=== PATIENT | male | born 1940 | race Caucasian/White ===

== ENCOUNTER 2017-07-08 11:14 | Outpatient (CLI) | payer MEDICARE | END 2017-07-08 11:15 | disposition critical access hospital (66) | LOC: EMS 11:14 | PROVIDERS: ATTEND Surgery | DX: R42 Dizziness and giddiness (principal); R11.0 Nausea | CPT/HCPCS: A0425; A0427 ==

== ENCOUNTER 2017-07-08 11:57 | Emergency (ER) | payer MEDICARE ==
--- NOTE | 2017-07-08 13:09 | ED Physician Documentation ---
PD HPI HEENT - Stated complaint Stated Complaint: VERTIGO - Chief complaint Chief Complaint: General - History obtained from History obtained from: Patient - History of Present Illness Timing - onset: Yesterday Timing - details: Abrupt onset, Intermittant Location: Other (Has had abrupt feeling of significant vertigo with position changes over the last 2 days. Initial episode was yesterday morning when awakening from bed and getting up. Another episode when getting up from a nap in the afternoon. Again this morning getting out of bed and then the other significant episode was when he was looking down kneeling on the ground fixing part of his sprinkler system in the yard and then looked up. He has lessening of the symptoms when he rests and holds still. He denies any foreign blurriness or ataxia per se. He feels off balance walking due to the vertigo. He has not had any trouble speaking, visual changes, speech part problems. He denies any focal weaknesses. He did not have any injury. He denies any recent head cold or congestion. He does feel some fullness in his ears as if there is pressure in them.) Improves: Other (holding still position) Worsens: Position (movement) Associated symptoms: Other (feeling of pressure in ears; no tinnitus per se.). No: Fever, Congestion, Headache Similar symptoms before: Has not had sx before Recently seen: Not recently seen Review of Systems Constitutional: denies: Fever, Chills, Myalgias Ears: denies: Loss of hearing, Ear pain (but feeling of pressure in ears ("like a balloon")), Tinnitus/ringing Nose: denies: Rhinorrhea / runny nose, Congestion, Sinus pressure / pain Throat: denies: Dental pain / toothache, Sore throat Cardiac: denies: Chest pain / pressure, Palpitations Respiratory: denies: Dyspnea, Cough GI: reports: Nausea (with the vertigo). denies: Abdominal Pain, Vomiting, Diarrhea : denies: Dysuria, Frequency Skin: denies: Rash, Lesions Neurologic: denies: Generalized weakness, Focal weakness, Numbness, Difficulty speaking, Near syncope, Altered mental status, Headache, Head injury Immunocompromised: denies: Immunocompromised PD PAST MEDICAL HISTORY - Past Medical History Cardiovascular: Hypertension, High cholesterol - Past Surgical History Past Surgical History: Yes Ortho: Knee replacement - Present Medications Home Medications: Ambulatory Orders Medication Instructions Recorded Confirmed Hydrochlorothiazide 08/30/14 08/30/14 Lisinopril 08/30/14 08/30/14 Naproxen 08/30/14 08/30/14 Simvastatin 08/30/14 08/30/14 amLODIPine [Norvasc] 08/30/14 08/30/14 Dexamethasone [Decadron] 4 mg PO DAILY #5 tablet 07/08/17 Meclizine [Antivert] 25 mg PO Q6H PRN #30 tablet 07/08/17 - Allergies Allergies/Adverse Reactions: Allergies Allergy/AdvReac Type Severity Reaction Status Date / Time No Known Drug Allergies Allergy Verified 07/08/17 12:16 - Social History Does the pt smoke?: No Smoking Status: Never smoker Does the pt drink ETOH?: Yes Does the pt have substance abuse?: No - Family History Family history: reports: Non contributory - Immunizations Immunizations are current?: Yes - POLST Patient has POLST: No PD ED PE NORMAL - Vitals Vital signs reviewed: Yes - General General: Alert and oriented X 3, No acute distress, Well developed/nourished - HEENT HEENT: Atraumatic, PERRL, EOMI (with nystagmus to the right), Ears normal, Moist mucous membranes, Pharynx benign - Neck Neck: Supple, no meningeal sign, Thyroid normal - Cardiac Cardiac: RRR, No murmur - Respiratory Respiratory: Clear bilaterally - Abdomen Abdomen: Soft, Non tender - Male Male : Deferred - Rectal Rectal: Deferred - Derm Derm: Normal color, Warm and dry - Extremities Extremities: No deformity, No tenderness to palpate, Normal ROM s pain, No edema , No calf tenderness / cord - Neuro Neuro: Alert and oriented X 3, health safety and environment manager 2-12 intact, No motor deficit, Normal speech Eye Opening: Spontaneous Motor: Obeys Commands Verbal: Oriented GCS Score: 15 Results - Vitals Vitals: Vital Signs - 24 hr 07/08/17 07/08/17 07/08/17 12:00 13:18 14:13 Temperature 36.7 C Heart Rate 53 L 45 L 45 L Respiratory 18 18 14 Rate Blood Pressure 174/65 H 136/64 H 154/79 H O2 Saturation 98 97 97 07/08/17 14:59 Temperature Heart Rate 46 L Respiratory 14 Rate Blood Pressure 140/65 H O2 Saturation 98 Oxygen O2 Source Room air - Labs Labs: Laboratory Tests 07/08/17 07/08/17 14:00 14:00 WBC 8.0 RBC 4.32 L Hgb 13.2 L Hct 38.6 L MCV 89.3 MCH 30.6 MCHC 34.3 RDW 14.6 Plt Count 315 MPV 6.6 L Neut # 6.3 Lymph # 0.9 L [place] # 0.7 Eos # 0.1 Baso # 0.1 Absolute Nucleated RBC 0.00 Nucleated RBC % 0.0 Sodium 128 L Potassium 4.2 Chloride 96 L Carbon Dioxide 26 Anion Gap 6.0 BUN 13 Creatinine 0.7 Estimated GFR (MDRD) 109 Glucose 111 H Calcium 8.9 Magnesium 1.8 Total Bilirubin 1.4 H AST 22 ALT 19 Alkaline Phosphatase 45 Total Protein 6.7 Albumin 4.3 Globulin 2.4 Albumin/Globulin Ratio 1.8 Lipase 20 L PD MEDICAL DECISION MAKING - ED course Complexity details: re-evaluated patient (He is having bradycardia on the heart monitor that does not correlate with any symptoms. He states he felt dizzy when he walked to the bathroom and back and did have to hold on for balance. He does have a walker at home. His heart rate at that time was 50s-60s. At rest his heart rate went down to 38-40 at the lowest but only for briefly. Generally it is high 40s-50s. He does take metoprolol without any recent change of dose. He states he has a chronically low sodium and it is a little bit low here. His other electrolytes are good. He does have positional vertigo which dampens when he rests and he has obvious nystagmus to the right and no other neurologic symptoms. Therefore seems peripheral vertigo and we will treated with meclizine and short course steroids. It does not sound as much otolith given a feeling of pressure in his ears. He has an appointment with his primary care coincidentally tomorrow and I defer to his primary care for ENT referral if he wishes. I would have him hold his metoprolol dose tonight and they can talk about adjusting the dose tomorrow with his primary care. I think the heart rate is unrelated to the dizziness.), considered differential, d/w patient Departure - Departure Disposition: 01 Home, Self Care Clinical Impression: Positional vertigo of right ear, Bradycardia on ECG Condition: Stable Record reviewed to determine appropriate education?: Yes Instructions: ED Vertigo Unspecified Prescriptions: Dexamethasone [Decadron] 4 mg PO DAILY #5 tablet Meclizine [Antivert] 25 mg PO Q6H PRN #30 tablet PRN Reason: Vertigo Comments: Hold your metoprolol this evening and tomorrow morning and discuss with your primary care tomorrow about likely lowered dose as your heart rate is relatively slow. I think that is unrelated to the dizziness however. The dizziness sounds like in her ear process and take Decadron daily for 5 days presuming some inner ear inflammation and meclizine 25 mg every 6 hours if needed for the dizziness. Use your walker at home for balance over the next couple of days until this is improving. Follow-up with your primary care tomorrow as scheduled. Discharge Date/Time: 07/08/17 15:18
[2017-07-08] MEDS ORDERED: DEXAMETHASONE 10 MG/ML VIAL PO STA (13:41)
[2017-07-08] MEDS ORDERED: MECLIZINE 12.5 MG TABLET PO STA (13:41)
[2017-07-08 14:03] LABS: BASOPHILS # (AUTO) 0.1 10^3/uL (0.0-0.1); BASOPHILS % (AUTO) 0.7 %; EOSINOPHILS # (AUTO) 0.1 10^3/uL (0.0-0.7); EOSINOPHILS % (AUTO) 1.4 %; HGB - HEMOGLOBIN 13.2 g/dL (14.0-18.0); LYMPHOCYTES # (AUTO) 0.9 10^3/uL (1.5-3.5); LYMPHOCYTES % (AUTO) 11.3 %; MEAN CORPUSCULAR HEMOGLOBIN 30.6 pg (27.0-31.0); MEAN CORPUSCULAR HGB CONC 34.3 g/dL (32.0-36.0); MEAN CORPUSCULAR VOLUME 89.3 fL (80.0-94.0); MEAN PLATELET VOLUME 6.6 fL (7.4-11.4); MONOCYTES # (AUTO) 0.7 10^3/uL (0.0-1.0); MONOCYTES % (AUTO) 8.2 %; NEUTROPHILS # (AUTO) 6.3 10^3/uL (1.5-6.6); NEUTROPHILS % (AUTO) 78.4 %; PLT - PLATELET COUNT 315 10^3/uL (130-450); RED BLOOD COUNT 4.32 10^6/uL (4.70-6.10); RED CELL DISTRIBUTION WIDTH 14.6 % (12.0-15.0)
[2017-07-08 14:16] LABS: ALBUMIN 4.3 g/dL (3.2-5.5); ALBUMIN/GLOBULIN RATIO 1.8 (1.0-2.2); BILIRUBIN,TOTAL 1.4 mg/dL (0.2-1.0); CALCIUM 8.9 mg/dL (8.5-10.3); CREATININE 0.7 mg/dL (0.6-1.2); MAGNESIUM 1.8 mg/dL (1.7-2.8); TOTAL PROTEIN 6.7 g/dL (6.7-8.2)
[2017-07-08 14:59] VITALS: BP 140/65
== END 2017-07-08 15:18 | disposition home or self-care (01) ==
LOC: EDUNIT# → ED 11:57
DX: H81.11 Benign paroxysmal vertigo, right ear (principal); R00.1 Bradycardia, unspecified; I10 Essential (primary) hypertension; E78.00 Pure hypercholesterolemia, unspecified
CPT/HCPCS: 36415; 80053; 83690; 83735; 85025; 93005; 99284; A9270